=== PATIENT | male | born 1980 | race Hispanic/Latino ===

== ENCOUNTER 2025-01-14 08:42 | Emergency (ER) | payer BC, OTHER ==
[~2025-01-14] VITALS: Ht 175.3 cm; Wt 122.5 kg
--- NOTE | 2025-01-14 09:16 | ERN ---
General Chief Complaint: Other Problems Stated Complaint: RECTAL PAIN, HEMMORHOID Time Seen by MD: 08:45 History of Present Illness Initial Comments 44-year-old male, history of hypertension and dyslipidemia, presents for rectal pain for three or four days. Awhile ago the patient had some bright red blood per rectum. At that time he was diagnosed with hemorrhoid. Those symptoms have resolved, but over the last three or four days he has had some rectal pain with stooling. No bleeding. He feels a mass or protrusion from his rectum. No vomiting or systemic illness. Allergies: Coded Allergies: No Known Allergies (Unverified Allergy, Unknown, 01/14/25) Home Meds Active Scripts Amoxicillin/Potassium Clav (Amox Tr-K Clv 875-125 mg Tab) 875 Mg-125 Mg Tablet, 1 TAB PO BID for 10 Days, #20 TAB 0 Refills Prov:MILE MURRY DO 01/15/25 Acetaminophen with Codeine (Acetaminophen-Cod #3 Tablet) 300 Mg-30 Mg Tablet, 1 TAB PO TIDP PRN for pain for 5 Days, #10 TAB 0 Refills Prov:MILE MURRY DO 01/14/25 Amoxicillin/Potassium Clav (Amox Tr-K Clv 875-125 mg Tab) 875 Mg-125 Mg Tablet, 1 TAB PO BID for 10 Days, #20 TAB 0 Refills Prov:MILE MURRY DO 01/14/25 Past Medical History Past Medical History: High Cholesterol, Hypertension Past Surgical History: None ROS Dictation CONSTITUTIONAL: No chills, no fever, no weakness, no diaphoresis, no malaise. HEAD/FACE: No signs of trauma. EENT: No eye pain, no blurred vision, no tearing, no double vision, no ear pain, no ear discharge, no nose pain, no nasal congestion, no throat pain, no throat swelling, no mouth pain. RESPIRATORY: No cough, no orthopnea, no SOB, no stridor, no wheezing. CARDIOVASCULAR: No chest pain, no edema, no palpitations, no syncope. GASTROINTESTINAL/ABDOMINAL: No abdominal pain, no constipation, no diarrhea, no nausea, no vomiting. Rectal pain GENITOURINARY: No abnormal discharge, no dysuria, no frequent urination, no hematuria. No complaints of pain in the genitals. MUSCULOSKELETAL: No back pain, no gout, no joint pain, no joint swelling, no muscle pain, no muscle stiffness, no neck pain. INTEGUMENTARY: No change in color, no change in hair/nails, no dryness, no lesion, no lumps, no rash. NEUROLOGICAL/PSYCH: No anxiety, not depressed, no emotional problem, no headache, no numbness, no pre-existing deficit, no history of seizures, no tremors, no weakness. HEMATOLOGIC/LYMPHATIC: Not anemic, no history of blood clots, no apparent bleeding, no bruising, glands not swollen. All Systems Negative, Except as Noted. Physical Exam Physical Exam Dictation VITAL SIGNS: Reviewed. GENERAL APPEARANCE: Alert, oriented x3, no acute distress, obese. HEAD AND FACE: Non-traumatic. EYES: PERRL, pink conjunctivas, eyelid no trauma, anterior chamber clear. EARS: Pinnas intact and no signs of trauma or erythema. Ear canals clear and no discharge. TMs no erythema. NOSE: No discharge, no bleeding. OROPHARYNX: Mouth normal, teeth no caries, tongue pink. Pharynx clear, no erythema. Tonsils no exudates, no abscesses noted. Mucous membrane moist. NECK: Supple, non-tender, no thyromegaly, no masses, no JVD, no bruits. BREAST: Deferred. CHEST: No tenderness, no crepitus, no paradoxical movement, no retractions. LUNGS: Clear, well-ventilated, symmetric, no rales, no wheezing, no rhonchi, no stridor, good breath sounds bilaterally. HEART: Regular rate, regular rhythm, no murmur, no gallops. VASCULAR: No peripheral edema. ABDOMEN: Soft, positive bowel sounds, nondistended, no guarding, nontender, no rebound, no masses no hepatomegaly, no splenomegaly, no Manning's sign, no hernias. RECTAL: No protrusion, there is a very small mass near the anus, does not appear to be any a hemorrhoid, possibly abscess GENITAL: Deferred. NEUROLOGICAL: Normal speech, gross motor function intact, gross sensory function intact. MUSCULOSKELETAL: Neck nontender, full range of motion, back nontender, full range of motion. EXTREMITIES: Nontender, full range of motion. SKIN: Color pink, dry, no turgor, no rash, no lacerations, no abrasions, no contusions. LYMPHATICS: Deferred. Results Laboratory and Microbiology Lab and Micro Result Laboratory Tests Test 01/14/25 09:18 White Blood Count 8.1 K/uL (4.8-10.8) Red Blood Count 5.65 MIL/uL (4.50-6.20) Hemoglobin 17.2 g/dL (14.0-18.0) Hematocrit 51.1 % (42-54) Mean Corpuscular Volume 90.4 fL (79-99) Mean Corpuscular Hemoglobin 30.4 pg (27.0-33.0) Mean Corpuscular Hemoglobin Concent 33.7 g/dL (32.0-36.0) Red Cell Distribution Width 12.3 % (11.0-15.5) Platelet Count 240 K/uL (130-400) Mean Platelet Volume 11.0 fL (7.5-10.5) H Immature Granulocyte % (Auto) 0.4 % (0-1) Neutrophils (%) (Auto) 68.7 % (40.0-77.0) Lymphocytes (%) (Auto) 21.6 % (21.0-51.0) Monocytes (%) (Auto) 7.6 % (3.0-13.0) Eosinophils (%) (Auto) 1.1 % (0.0-8.0) Basophils (%) (Auto) 0.6 % (0.0-5.0) Neutrophils # (Auto) 5.6 K/uL (1.8-7.7) Lymphocytes # (Auto) 1.8 K/uL (1.0-4.8) Monocytes # (Auto) 0.6 K/uL (0.1-1.0) Eosinophils # (Auto) 0.09 K/uL (0.00-0.70) Basophils # (Auto) 0.05 K/uL (0.00-0.20) Absolute Immature Granulocyte (auto 0.03 K/uL (0-1) Nucleated Red Blood Cells 0.0 % (0.0-0.19) Sodium Level 138 mmol/L (136-145) Potassium Level 3.8 mmol/L (3.5-5.1) Chloride Level 101 mmol/L (101-111) Carbon Dioxide Level 31 mmol/L (21-32) Blood Urea Nitrogen 6 mg/dL (7-18) L Creatinine 0.7 mg/dL (0.5-1.3) Glomerular Filtration Rate Calc 117 mL/min (>90) Random Glucose 112 mg/dL (70-105) H Hemoglobin A1c 5.8 % (4.0-6.0) Estimated Average Glucose (eAG) 120 mg/dL (70-126) Total Calcium 9.2 mg/dL (8.5-10.1) MDM CC: Rectal pain Historian: Patient Comorbidities: None Limitations by social determinants of health: None Differential diagnosis: Fissure, abscess, hemorrhoid, other. Vital signs: Stable, remained stable in the ER Labs (independently ordered and interpreted by me): No leukocytosis no anemia. Chemistry panel is unremarkable. A1c is normal. CT abdomen and pelvis ( with contrast, independently interpreted by me): Questionable perirectal abscess. On clinical exam there is no signs of abscess. It was very small abrasion, likely the source. This point in time I think it is safe for discharge with the antibiotics and follow up. Patient already has a GI follow up scheduled. Patient agrees with the plan. Discharge prescriptions: T3, Augmentin ED Course Orders Procedure Category Date Status Time Ct Pelvis W/Contrast CT 01/14/25 Resulted 09:10 Hemoglobin A1c LAB 01/14/25 Complete 09:10 Cbc With Differential LAB 01/14/25 Complete 09:10 Basic Metabolic Panel LAB 01/14/25 Complete 09:10 Iohexol (Omnipaque) PHA 01/14/25 Complete 10:46 Lidocaine Hcl 4% Top PHA 01/14/25 Complete Elicia (Lidocaine Hcl 12:30 Vital Signs Date Time Temp Pulse Resp B/P (MAP) Pulse Ox O2 Delivery O2 Flow Rate FiO2 01/14/25 12:59 98.4 92 18 133/85 98 Room Air* 0 21 01/14/25 08:48 97.9 86 16 146/64 98 Room Air* 0 21 01/14/25 08:44 97.9 85 16 146/84 97 Room Air 0 DX & DISP Disposition: Discharge Departure Impression: Primary Impression: Perianal abscess Condition: Stable Scripts Amoxicillin/Potassium Clav (Amox Tr-K Clv 875-125 mg Tab) 875 Mg-125 Mg Tablet 1 TAB PO BID for 10 Days, #20 TAB 0 Refills Prov: MILE MURRY DO 01/15/25 Acetaminophen with Codeine (Acetaminophen-Cod #3 Tablet) 300 Mg-30 Mg Tablet 1 TAB PO TIDP PRN for pain for 5 Days, #10 TAB 0 Refills Prov: MILE MURRY DO 01/14/25 Amoxicillin/Potassium Clav (Amox Tr-K Clv 875-125 mg Tab) 875 Mg-125 Mg Tablet 1 TAB PO BID for 10 Days, #20 TAB 0 Refills Prov: MILE MURRY DO 01/14/25 Additional Instructions: You have a piero-anal abscess. Take the antibiotics that I have prescribed. (amoxicillin/clavulanic acid). I have prescribed Tylenol with codeine to use for severe pain. You can also take 800 mg of ibuprofen up to 3 times a day as needed. This medication is [id number]-ludeemo. Return to the emergency department as needed. Referrals: NONE (PCP) MILE MURRY DO Jan 14, 2025 09:16
[2025-01-14 09:33] LABS: BASOPHILS # (AUTO) 0.05 K/uL (0.00-0.20); BASOPHILS % (AUTO) 0.6 % (0.0-5.0); EOSINOPHILS # (AUTO) 0.09 K/uL (0.00-0.70); EOSINOPHILS % (AUTO) 1.1 % (0.0-8.0); HEMATOCRIT 51.1 % (42-54); IMMATURE GRANULOCYTE ABSOLUTE 0.03 K/uL (0-1); LYMPHOCYTES # (AUTO) 1.8 K/uL (1.0-4.8); LYMPHOCYTES % (AUTO) 21.6 % (21.0-51.0); MEAN CORPUSCULAR HEMOGLOBIN 30.4 pg (27.0-33.0); MEAN CORPUSCULAR HGB CONC 33.7 g/dL (32.0-36.0); MEAN CORPUSCULAR VOLUME 90.4 fL (79-99); MONOCYTES # (AUTO) 0.6 K/uL (0.1-1.0); MONOCYTES % (AUTO) 7.6 % (3.0-13.0); NEUTROPHILS # (AUTO) 5.6 K/uL (1.8-7.7); NEUTROPHILS % (AUTO) 68.7 % (40.0-77.0); PLATELET COUNT (AUTO) 240 K/uL (130-400); RED BLOOD CELL COUNT(AUTO) 5.65 MIL/uL (4.50-6.20); RED CELL DISTRIBUTION WIDTH 12.3 % (11.0-15.5); WHITE BLOOD COUNT (AUTO) 8.1 K/uL (4.8-10.8)
[2025-01-14 09:38] LABS: CREATININE 0.7 mg/dL (0.5-1.3); POTASSIUM 3.8 mmol/L (3.5-5.1)
[2025-01-14 09:39] LABS: HEMOGLOBIN A1C 5.8 % (4.0-6.0)
[2025-01-14] MEDS ORDERED: IOHEXOL-350 75 ML VIAL IV ONE (10:46)
--- NOTE | 2025-01-14 11:22 | HMCIMG ---
CT PELVIS W/CONTRAST HISTORY: Perirectal abscess COMPARISON: None TECHNIQUE: Multiple sequential axial images of the pelvis were obtained from the iliac crests through symphysis pubis. Patient was not given contrast through intravenous route. Oral contrast was not given. FINDINGS: There are normal sized pelvic and inguinal lymph nodes. Fecal material seen throughout the colon. No CT evidence of acute appendicitis is seen. No ascites is seen. There is minimal atherosclerosis. Pelvic sidewalls are symmetric bilaterally. Bladder is well distended without wall thickening. Evaluation is limited due to lack of oral and IV contrast. There is questionable perirectal abscess measuring 2 x 1.1 cm posterior to the rectum. IMPRESSION: 1. Evaluation is limited due to lack of oral and IV contrast. There is questionable perirectal abscess measuring 2 x 1.1 cm posterior to the rectum. CT was performed with one or more following dose reduction techniques: automated exposure control, adjustment of the mA and kv according to patient's size, or use of a iterative reconstruction technique.
[2025-01-14] MEDS ORDERED: ACET-2079 PO (12:27)
[2025-01-14] MEDS ORDERED: AMOX1TAB16 PO (12:27)
[2025-01-14] MEDS: LIDOCAINE HCL 4% TOP SOL 50ML TP ONE (12:40)
[2025-01-14 12:59] VITALS: BP 133/85; PULSE 92; RESP 18; TEMP 98.5; O2SAT 98
== END 2025-01-14 12:51 | disposition home or self-care (01) ==
LOC: EDH 08:42
DX: K61.2 Anorectal abscess (principal); E78.00 Pure hypercholesterolemia, unspecified; I10 Essential (primary) hypertension; Z79.899 Other long term (current) drug therapy
CPT/HCPCS: 99285; 72193; 83036; 80048; 85025; 36415; Q9967; 99284

== ENCOUNTER 2025-04-27 14:33 | Emergency (ER) | payer OTHER ==
[~2025-04-27] VITALS: Ht 175.3 cm; Wt 112.5 kg
[~2025-04-27 14:33] MED LIST: ACET-2079 PO; AMOX1TAB16 PO
--- NOTE | 2025-04-27 14:44 | ERN ---
General Chief Complaint: Chest Pain Stated Complaint: CP Time Seen by MD: 14:36 Source: patient History of Present Illness Initial Comments PATIENT IS A 44-YEAR-OLD GENTLEMAN COMING IN TO BE EVALUATED FOR RIGHT UPPER QUADRANT PAIN. PATIENT STATES THAT THE PAIN RADIATES IN HIS RIGHT SIDE OF THE CHEST. HE STATES THAT SHORTLY AFTER EATING LUNCH HE STARTED PRESENTING WITH A HIS INTRACTABLE PAIN. PAIN IS RATED AT 10/10 SHARP RADIATING UP CHEST. Allergies: Coded Allergies: No Known Allergies (Unverified Allergy, Unknown, 01/14/25) Home Meds Active Scripts Amoxicillin/Potassium Clav (Amox Tr-K Clv 875-125 mg Tab) 875 Mg-125 Mg Tablet, 1 TAB PO BID for 10 Days, #20 TAB 0 Refills Prov:MILE MURRY DO 01/15/25 Acetaminophen with Codeine (Acetaminophen-Cod #3 Tablet) 300 Mg-30 Mg Tablet, 1 TAB PO TIDP PRN for pain for 5 Days, #10 TAB 0 Refills Prov:MILE MURRY DO 01/14/25 Amoxicillin/Potassium Clav (Amox Tr-K Clv 875-125 mg Tab) 875 Mg-125 Mg Tablet, 1 TAB PO BID for 10 Days, #20 TAB 0 Refills Prov:LOVELYMILE Morgan DO 01/14/25 Past Medical History Past Medical History: High Cholesterol, Hypertension Past Surgical History: Other Surgical History Other: s/pcolonoscpy last tuesday ROS Dictation CONSTITUTIONAL: NO CHILLS, NO FEVER, NO WEAKNESS, NO DIAPHORESIS, NO MALAISE. HEAD/FACE: NO SIGNS OF TRAUMA. EENT: NO EYE PAIN, NO BLURRED VISION, NO TEARING, NO DOUBLE VISION, NO EAR PAIN, NO EAR DISCHARGE, NO NOSE PAIN, NO NASAL CONGESTION, NO THROAT PAIN, NO THROAT SWELLING, NO MOUTH PAIN. RESPIRATORY: NO COUGH, NO ORTHOPNEA, NO SOB, NO STRIDOR, NO WHEEZING. CARDIOVASCULAR: CHEST PAIN, NO EDEMA, NO PALPITATIONS, NO SYNCOPE. GASTROINTESTINAL/ABDOMINAL: ABDOMINAL PAIN, NO CONSTIPATION, NO DIARRHEA, NO NAUSEA, NO VOMITING. GENITOURINARY: NO ABNORMAL DISCHARGE, NO DYSURIA, NO FREQUENT URINATION, NO HEMATURIA. NO COMPLAINTS OF PAIN IN THE GENITALS. MUSCULOSKELETAL: NO BACK PAIN, NO GOUT, NO JOINT PAIN, NO JOINT SWELLING, NO MUSCLE PAIN, NO MUSCLE STIFFNESS, NO NECK PAIN. INTEGUMENTARY: NO CHANGE IN COLOR, NO CHANGE IN HAIR/NAILS, NO DRYNESS, NO LESION, NO LUMPS, NO RASH. NEUROLOGICAL/PSYCH: NO ANXIETY, NOT DEPRESSED, NO EMOTIONAL PROBLEM, NO HEADACHE, NO NUMBNESS, NO PRE-EXISTING DEFICIT, NO HISTORY OF SEIZURES, NO TREMORS, NO WEAKNESS. HEMATOLOGIC/LYMPHATIC: NOT ANEMIC, NO HISTORY OF BLOOD CLOTS, NO APPARENT BLEEDING, NO BRUISING, GLANDS NOT SWOLLEN. ALL SYSTEMS NEGATIVE, EXCEPT NOTED. Physical Exam Physical Exam Dictation VITAL SIGNS: REVIEWED. GENERAL APPEARANCE: ALERT, ORIENTED X3, NO ACUTE DISTRESS, OBESE. HEAD AND FACE: NON-TRAUMATIC. EYES: PERRL, PINK CONJUNCTIVAS, EYELID NO TRAUMA, ANTERIOR CHAMBER CLEAR. EARS: PINNAS INTACT AND NO SIGNS OF TRAUMA OR ERYTHEMA. EAR CANALS CLEAR AND NO DISCHARGE. TMS NO ERYTHEMA. NOSE: NO DISCHARGE, NO BLEEDING. OROPHARYNX: MOUTH NORMAL, TEETH NO CARIES, TONGUE PINK. PHARYNX CLEAR, NO ERYTHEMA. TONSILS NO EXUDATES, NO ABSCESSES NOTED. MUCOUS MEMBRANE MOIST. NECK: SUPPLE, NON-TENDER, NO THYROMEGALY, NO MASSES, NO JVD, NO BRUITS. BREAST: DEFERRED. CHEST: NO TENDERNESS, NO CREPITUS, NO PARADOXICAL MOVEMENT, NO RETRACTIONS. LUNGS: CLEAR, WELL-VENTILATED, SYMMETRIC, NO RALES, NO WHEEZING, NO RHONCHI, NO STRIDOR, GOOD BREATH SOUNDS BILATERALLY. HEART: REGULAR RATE, REGULAR RHYTHM, NO MURMUR, NO GALLOPS. VASCULAR: NO PERIPHERAL EDEMA. ABDOMEN: SOFT, POSITIVE BOWEL SOUNDS, NONDISTENDED, NO GUARDING,RUQ TENDER, REBOUND, NO MASSES NO HEPATOMEGALY, NO SPLENOMEGALY, NO NELSON'S SIGN, NO HERNIAS. RECTAL: DEFERRED. GENITAL: DEFERRED. NEUROLOGICAL: NORMAL SPEECH, GROSS MOTOR FUNCTION INTACT, GROSS SENSORY FUNCTION INTACT. MUSCULOSKELETAL: NECK NONTENDER, FULL RANGE OF MOTION, BACK NONTENDER, FULL RANGE OF MOTION. EXTREMITIES: NONTENDER, FULL RANGE OF MOTION. SKIN: COLOR PINK, DRY, NO TURGOR, NO RASH, NO LACERATIONS, NO ABRASIONS, NO CON TUSIONS. LYMPHATICS: DEFERRED. Results Laboratory and Microbiology Lab and Micro Result Laboratory Tests Test 04/27/25 14:50 White Blood Count 13.5 K/uL (4.8-10.8) H Red Blood Count 5.43 MIL/uL (4.50-6.20) Hemoglobin 16.4 g/dL (14.0-18.0) Hematocrit 49.7 % (42-54) Mean Corpuscular Volume 91.5 fL (79-99) Mean Corpuscular Hemoglobin 30.2 pg (27.0-33.0) Mean Corpuscular Hemoglobin Concent 33.0 g/dL (32.0-36.0) Red Cell Distribution Width 12.2 % (11.0-15.5) Platelet Count 247 K/uL (130-400) Mean Platelet Volume 11.2 fL (7.5-10.5) H Immature Granulocyte % (Auto) 0.4 % (0-1) Neutrophils (%) (Auto) 62.1 % (40.0-77.0) Lymphocytes (%) (Auto) 27.0 % (21.0-51.0) Monocytes (%) (Auto) 8.7 % (3.0-13.0) Eosinophils (%) (Auto) 1.3 % (0.0-8.0) Basophils (%) (Auto) 0.5 % (0.0-5.0) Neutrophils # (Auto) 8.4 K/uL (1.8-7.7) H Lymphocytes # (Auto) 3.6 K/uL (1.0-4.8) Monocytes # (Auto) 1.2 K/uL (0.1-1.0) H Eosinophils # (Auto) 0.18 K/uL (0.00-0.70) Basophils # (Auto) 0.07 K/uL (0.00-0.20) Absolute Immature Granulocyte (auto 0.06 K/uL (0-1) Nucleated Red Blood Cells 0.0 % (0.0-0.19) Sodium Level 145 mmol/L (136-145) Potassium Level 3.7 mmol/L (3.5-5.1) Chloride Level 104 mmol/L (101-111) Carbon Dioxide Level 29 mmol/L (21-32) Blood Urea Nitrogen 13 mg/dL (7-18) Creatinine 0.9 mg/dL (0.5-1.3) Glomerular Filtration Rate Calc 109 mL/min (>90) Random Glucose 115 mg/dL (70-105) H Total Calcium 9.5 mg/dL (8.5-10.1) Total Bilirubin 0.5 mg/dL (0.2-1.0) Aspartate Amino Transf (AST/SGOT) 47 U/L (10-37) H Alanine Aminotransferase (ALT/SGPT) 69 U/L (12-78) Alkaline Phosphatase 99 U/L (50-136) Troponin I High Sensitivity < 4 ng/L (4-75) L Total Protein 7.9 g/dL (6.0-8.3) Albumin 4.1 g/dL (3.5-5.0) Lipase 30 U/L (16-77) Labs Reviewed?: Yes EKG/XRAY/US/CT/MRI EKG Comment 04/27/2025 TIME 2:28 P.M. VENTRICULAR RATE 81 SINUS RHYTHM RI [address] WAVE ELEVATION OR DEPRESSION X-RAY Comment [place] [id number] [place] [id number] IMAGING REPORT Signed PATIENT: MIGUEL CONNER MR#: [id number] : 1980 SEX: M AGE: 44 LOCATION: ED ORDER [id number] STATUS: REG ER REPORT#: [id number] SERVICE 1440 REASON: CP ORDERING PHYSICIAN: TEODORA REID MD PROCEDURE: CXR1VW - CHEST 1VW CHEST 1VW HISTORY: Chest pain COMPARISON: 02/19/2009 FINDINGS: A frontal projection of the chest was obtained. No acute pulmonary infiltrates is seen. The heart is enlarged. Degenerative changes are seen. No evidence of aortic calcification is seen. IMPRESSION: 1. No acute pulmonary infiltrate is seen. DICTATED BY: KATHY HDZ MD DATE: 04/27/25 161 ELECTRONICALLY SIGNED BY: KATHY HDZ MD DATE: 04/27/25 162 Ultrasound Comment [place] [address] [address] IMAGING REPORT Signed PATIENT: MIGUEL CONNER MR#: [id number] : 1980 SEX: M AGE: 44 LOCATION: ED ORDER [id number] STATUS: REG ER [facility] REPORT#: [id number] SERVICE 1541 REASON: RUQ PAIN ORDERING PHYSICIAN: TEODORA REID MD PROCEDURE: ABDRUQLTD - US ABDOMINAL RUQ\LTD US ABDOMINAL RUQ\E\LTD HISTORY: Thumb pain COMPARISON: None TECHNIQUE: Right upper quadrant abdominal ultrasound study was performed. FINDINGS: Liver measures 19.3 cm. The visualized portion of the pancreas is within normal limits. Liver is echogenic consistent with liver parenchymal disease. Gallstones are seen in the gallbladder. Common duct measures 5 mm. No evidence of gallbladder wall thickening is seen. Right kidney measures 12 x 5.6 x 5.9 cm. No hydronephrosis is seen of the right kidney. IMPRESSION: 1. Gallstones. No ductal dilatation is seen. 2. No hydronephrosis is seen. DICTATED BY: KATHY HDZ MD DATE: 04/27/251608 ELECTRONICALLY SIGNED BY: KATHY HDZ MD DATE: 04/27/[address] Scan Comment IMAGING REPORT Signed PATIENT: MIGUEL CNONER MR#: [id number] : 1980 SEX: M AGE: 44 LOCATION: ED ORDER 41 STATUS: [facility] ER REPORT#: [id number] SERVICE 1541 REASON: RUQ PAIN ORDERING PHYSICIAN: TEODORA REID MD PROCEDURE: ABD PEL WO - CT ABDOMEN/PELVIS W/O CONTRAST CT ABDOMEN/PELVIS W/O CONTRAST HISTORY: Abdominal pain COMPARISON: None TECHNIQUE: Multiple sequential axial images of the abdomen and pelvis were obtained from the dome of the diaphragm through symphysis pubis. Patient was not given contrast through intravenous route. Oral contrast was not given. FINDINGS: No pleural effusion is seen bilaterally. There is no evidence of parenchymal disease or pulmonary nodule of the visualized lower lungs. Degenerative changes of the thoracolumbar spine are present. The heart is not enlarged. That is enlarged measuring 18.3 cm. Gallstones are seen in the contracted gallbladder. No bowel obstruction is seen. The liver, spleen, adrenal glands and pancreas are unremarkable. There is no evidence of hydronephrosis bilaterally. No evidence of renal stone is seen. Fecal material is seen in the colon. There are normal size retroperitoneal and mesenteric lymph nodes. No ascites is seen. No CT evidence of acute appendicitis is seen. Pelvic sidewalls are symmetric bilaterally. The bladder is poorly distended. IMPRESSION: 1. Gallstones in the gallbladder. No bowel obstruction. CT was performed with one or more following dose reduction techniques: automated exposure control, adjustment of the mA and kv according to patient's size, or use of a iterative reconstruction technique. DICTATED BY: KATHY HDZ MD DATE: 04/27/251707 ELECTRONICALLY SIGNED BY: KATHY HDZ MD DATE: 04/27/25 171 [facility] MDM: DIFFERENTIAL DIAGNOSIS: BILIARY COLIC, CHOLECYSTITIS, CHOLANGITIS, RATIONALE: TESTS CONSIDERED AND ORDERED SECONDARY TO SHARED DECISION MAKING INCLUDE: PREVIOUS OUTSIDE RECORDS REVIEWED: OLD ER VISITS. RISK OF COMPLICATION AND/OR MORBIDITY OR MORTALITY OF PATIENT MANAGEMENT: NONE PATIENT IS A 44-YEAR-OLD GENTLEMAN COMING IN TO BE EVALUATED FOR RIGHT UPPER QUADRANT PAIN. CT ULTRASOUND DID NOT DISCLOSE ACUTE FINDINGS. THERE IS A BILIARY STONE WHICH WAS FOUND. PATIENT WILL BE DISCHARGED IN STABLE CONDITION WITH A DIAGNOSIS OF BILIARY COLIC I DID ADVISED HIM APPROPRIATE FOLLOW UP WITH PCP AND/OR SURGEON FOR ONGOING EVALUATION MANAGEMENT ED Course Orders Procedure Category Date Status Time Cbc With Differential LAB 04/27/25 Complete 14:40 Comprehensive LAB 04/27/25 Complete Metabolic Panel 14:40 Troponin I High LAB 04/27/25 Complete Sensitivity 14:40 Urinalysis Profile LAB 04/27/25 Logged 14:40 12 Lead Ekg Tracing- EKG 04/27/25 Logged Technical 14:40 Ondansetron 4mg Inj PHA 04/27/25 Complete (Zofran 4mg Inj) 15:00 Pantoprazole 40mg Inj PHA 04/27/25 Complete (Protonix 40mg Inj 15:00 Chest 1vw RAD 04/27/25 Resulted 14:40 Lipase LAB 04/27/25 Complete 14:40 Ketorolac PHA 04/27/25 Complete Tromethamine 30mg/Ml 15:00 Us Abdominal Ruq\Ltd US 04/27/25 Resulted 15:41 Ct Abdomen/Pelvis W/O CT 04/27/25 Resulted Contrast 15:41 Current Medications Medications (Trade) Dose Ordered Sig/Kecia Route PRN Reason Start Time Stop Time Status Last Admin Dose Admin Ketorolac Tromethamine (toRADol) 30 mg ONCE ONCE IVP 04/27/25 15:00 04/27/25 15:01 DC 04/27/25 14:51 Ondansetron HCl (zoFRAN 4MG INJ) 4 mg ONCE ONCE IVP 04/27/25 15:00 04/27/25 15:01 DC 04/27/25 14:51 Pantoprazole Sodium (PROTonix 40MG INJ) 40 mg ONCE ONCE IVP 04/27/25 15:00 04/27/25 15:01 DC 04/27/25 14:51 Vital Signs Date Time Temp Pulse Resp B/P (MAP) Pulse Ox O2 Delivery O2 Flow Rate FiO2 04/27/25 16:49 97 17 134/77 98 Room Air* 0 21 04/27/25 14:37 97.9 85 20 168/93 99 Room Air* 0 21 04/27/25 14:35 97.9 85 20 168/93 99 DX & DISP Disposition: Discharge Departure Impression: Primary Impression: Biliary colic Condition: Stable Additional Instructions: FOLLOW-UP WITH PRIMARY CARE PROVIDER IN 1 TO 2 DAYS. TAKE MEDICATIONS DIRECTED HERE IN THE EMERGENCY ROOM. OKAY TO CONTINUE HOME MEDICATIONS UNLESS OTHERWISE DISCUSSED DURING YOUR VISIT IN THE EMERGENCY ROOM TODAY. RETURN TO YOUR NEAREST EMERGENCY ROOM IF SYMPTOMS WORSEN OR IF THERE IS NO IMPROVEMENT. CALL 911 IF YOU NEED IMMEDIATE ASSISTANCE. TAKE TYLENOL [id number] NEEDED AND IF NO CONTRAINDICATIONS ARE PRESENT. INCREASE ORAL HYDRATION. A W OUND CULTURE OR URINE CULTURE WAS ORDERED HERE IN THE EMERGENCY ROOM DEPARTMENT PLEASE FOLLOW-UP WITH PRIMARY CARE PROVIDER AND ADVISE THEM TO GET REPORTS FROM OUR FACILITY. IF YOU HAD ANY LISA WRAP/SPLINTS THAT WERE APPLIED HERE, PLEASE DO NOT REMOVE THEM UNTIL YOU SEE YOUR PRIMARY CARE OR SPECIALTY. REFERRALS: Referrals: SELF,REFERRAL (PCP) SHOAIB LOTT MD, LUIS A MD Time of Disposition: 17:31 TEODORA REID MD Apr 27, 2025 14:44
[2025-04-27] MEDS: ketOROlac 30MG VIAL (30MG/ML) IVP ONE (14:51)
[2025-04-27] MEDS: ondanSETRON 4MG INJ IVP ONE (14:51)
[2025-04-27] MEDS: PANTOPrazole 40 MG/VIAL IVP ONE (14:51)
[2025-04-27 14:54] LABS: BASOPHILS # (AUTO) 0.07 K/uL (0.00-0.20); BASOPHILS % (AUTO) 0.5 % (0.0-5.0); EOSINOPHILS # (AUTO) 0.18 K/uL (0.00-0.70); EOSINOPHILS % (AUTO) 1.3 % (0.0-8.0); HEMATOCRIT 49.7 % (42-54); IMMATURE GRANULOCYTE ABSOLUTE 0.06 K/uL (0-1); LYMPHOCYTES # (AUTO) 3.6 K/uL (1.0-4.8); MEAN CORPUSCULAR HEMOGLOBIN 30.2 pg (27.0-33.0); MEAN CORPUSCULAR VOLUME 91.5 fL (79-99); MONOCYTES # (AUTO) 1.2 K/uL (0.1-1.0); MONOCYTES % (AUTO) 8.7 % (3.0-13.0); NEUTROPHILS # (AUTO) 8.4 K/uL (1.8-7.7); NEUTROPHILS % (AUTO) 62.1 % (40.0-77.0); PLATELET COUNT (AUTO) 247 K/uL (130-400); RED BLOOD CELL COUNT(AUTO) 5.43 MIL/uL (4.50-6.20); RED CELL DISTRIBUTION WIDTH 12.2 % (11.0-15.5); WHITE BLOOD COUNT (AUTO) 13.5 K/uL (4.8-10.8)
[2025-04-27 15:03] LABS: CREATININE 0.9 mg/dL (0.5-1.3); POTASSIUM 3.7 mmol/L (3.5-5.1)
[2025-04-27 15:07] LABS: ALBUMIN 4.1 g/dL (3.5-5.0); BILIRUBIN,TOTAL 0.5 mg/dL (0.2-1.0); TOTAL PROTEIN, SERUM 7.9 g/dL (6.0-8.3)
--- NOTE | 2025-04-27 16:14 | HMCIMG ---
US ABDOMINAL RUQ\E\LTD HISTORY: Thumb pain COMPARISON: None TECHNIQUE: Right upper quadrant abdominal ultrasound study was performed. FINDINGS: Liver measures 19.3 cm. The visualized portion of the pancreas is within normal limits. Liver is echogenic consistent with liver parenchymal disease. Gallstones are seen in the gallbladder. Common duct measures 5 mm. No evidence of gallbladder wall thickening is seen. Right kidney measures 12 x 5.6 x 5.9 cm. No hydronephrosis is seen of the right kidney. IMPRESSION: 1. Gallstones. No ductal dilatation is seen. 2. No hydronephrosis is seen.
--- NOTE | 2025-04-27 16:26 | HMCIMG ---
CHEST 1VW HISTORY: Chest pain COMPARISON: 02/19/2009 FINDINGS: A frontal projection of the chest was obtained. No acute pulmonary infiltrates is seen. The heart is enlarged. Degenerative changes are seen. No evidence of aortic calcification is seen. IMPRESSION: 1. No acute pulmonary infiltrate is seen.
--- NOTE | 2025-04-27 17:11 | HMCIMG ---
CT ABDOMEN/PELVIS W/O CONTRAST HISTORY: Abdominal pain COMPARISON: None TECHNIQUE: Multiple sequential axial images of the abdomen and pelvis were obtained from the dome of the diaphragm through symphysis pubis. Patient was not given contrast through intravenous route. Oral contrast was not given. FINDINGS: No pleural effusion is seen bilaterally. There is no evidence of parenchymal disease or pulmonary nodule of the visualized lower lungs. Degenerative changes of the thoracolumbar spine are present. The heart is not enlarged. That is enlarged measuring 18.3 cm. Gallstones are seen in the contracted gallbladder. No bowel obstruction is seen. The liver, spleen, adrenal glands and pancreas are unremarkable. There is no evidence of hydronephrosis bilaterally. No evidence of renal stone is seen. Fecal material is seen in the colon. There are normal size retroperitoneal and mesenteric lymph nodes. No ascites is seen. No CT evidence of acute appendicitis is seen. Pelvic sidewalls are symmetric bilaterally. The bladder is poorly distended. IMPRESSION: 1. Gallstones in the gallbladder. No bowel obstruction. CT was performed with one or more following dose reduction techniques: automated exposure control, adjustment of the mA and kv according to patient's size, or use of a iterative reconstruction technique.
[2025-04-27 17:39] VITALS: BP 132/76; PULSE 80; RESP 17; TEMP 97.9; O2SAT 98
--- NOTE | 2025-04-28 13:50 | EKG ---
[facility] Test Date: 2025-04-27 Test Time: 14:28:15 Pat Name: MIGUEL CONNER Department: ED Room: Gender: M Directional Driller: [id number] : 1980 Requested By: TEODORA REID Order Number: [id number] Reading MD: Donell Alvarado Measurements Intervals [place] Rate: 81 P: 40 [place]: 141 QRS: -32 QRSD: 100 T: 30 QT: 371 QTc: 430 Interpretive Statements Sinus rhythm Left axis deviation No previous ECG available for comparison Electronically Signed On 04-28-2025 14:42:36 CDT by Donell Alvarado Please click the below link to view image of tracing.
== END 2025-04-27 18:10 | disposition home or self-care (01) ==
LOC: EDH 14:33
DX: K80.50 Calculus of bile duct without cholangitis or cholecystitis without obstruction (principal); E78.00 Pure hypercholesterolemia, unspecified; I10 Essential (primary) hypertension; Z79.899 Other long term (current) drug therapy
CPT/HCPCS: 99285; 74176; 96374; 76705; 96375; 71045; 84484; 80053; 83690; 85025; 36415; 93005; J1885; J2405; J2470